=== PATIENT | female | born 1990 | race Caucasian/White ===

== ENCOUNTER 2019-02-16 16:20 | Emergency (ER) | payer OTHER, SELFPAY ==
--- NOTE | 2019-02-16 18:37 | ER ---
Nurse's Notes [facility] Name: Naima Shrestha Age: 28 yrs Sex: Female : 1990 Arrival Date: 02/16/2019 Time: 16:23 Bed 20 Private MD: Diagnosis: Urinary tract infection, site not specified Presentation: 02/16 16:33 Presenting complaint: Patient states: i started having low back pain where my kidneys tw2 are about 2 days ago, yesterday my fever got up to 103, denies urinary urgency frequency, now i feel nauseous and my stomach feels bloated and the lower part of my stomach is hurting me. Transition of care: patient was not received from another setting of care. Onset of symptoms was February 16, 2019. Risk Assessment: Do you want to hurt yourself or someone else? Patient reports no desire to harm self or others. Initial Sepsis Screen: Does the patient meet any 2 criteria? No. Patient's initial sepsis screen is negative. Does the patient have a suspected source of infection? No. Patient's initial sepsis screen is negative. Care prior to arrival: None. 16:33 Method Of Arrival: Ambulatory tw2 16:33 Acuity: OJNA 3 tw2 Triage Assessment: 16:37 General: Appears in no apparent distress. well groomed, Behavior is calm, cooperative, tw2 appropriate for age. General: pt reports fever spiked yesterday. Pain: Complains of pain in lumbar area, left low back and right low back. Musculoskeletal: Range of motion: intact in all extremities. 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 - Social history:: Smoking status: Patient/guardian denies using tobacco. - Ebola Screening: : Patient denies travel to an Ebola-affected area in the 21 days before illness onset. Screenin:04 Abuse screen: Denies threats or abuse. Nutritional screening: No deficits noted. tw2 Tuberculosis screening: No symptoms or risk factors identified. Fall Risk None identified. Assessment: 18:10 General: Appears in no apparent distress. comfortable, Behavior is calm, cooperative, em Reports fever for 2-3 days. Pain: Complains of pain in lumbar area Pain currently is 6 out of 10 on a pain scale. Neuro: Level of Consciousness is awake, alert, obeys commands, Oriented to person, place, time, situation. Cardiovascular: Capillary refill < 3 seconds Patient's skin is warm and dry. Respiratory: Airway is patent Respiratory effort is even, unlabored, Respiratory pattern is regular, symmetrical. GI: Abdomen is flat, Bowel sounds present X 4 quads. Patient currently denies nausea, vomiting. : Urine is cloudy, Reports burning with urination, Denies discharge. Derm: Skin is intact, is healthy with good turgor, Skin is pink, warm \T\ dry. Musculoskeletal: Capillary refill < 3 seconds, Range of motion: intact in all extremities. 18:17 Reassessment: I agree with previous assessment. hb Vital Signs: 16:35 BP 136 / 67; Pulse 99; Resp 17; Temp 99.3(O); Pulse Ox 98% on R/A; Weight 83.91 kg (R); tw2 Height 5 ft. 9 in. (175.26 cm) (R); Pain 6/10; 18:01 Temp 99.1(O); ms 16:35 Body Mass Index 27.32 (83.91 kg, 175.26 cm) tw2 ED Course: 16:23 Patient arrived in ED. mr 16:35 Triage completed. tw2 16:36 Arm band placed on. tw2 18:04 Bed in low position. Call light in reach. Pulse ox on. NIBP on. tw2 18:09 Gordon Barber LVN is Primary Nurse. em 18:14 Bib Mejía PA is PHCP. cp 18:14 Shon Willard MD is Attending Physician. cp 18:48 No provider procedures requiring assistance completed. Patient did not have IV access em during this emergency room visit. Administered Medications: No medications were administered Outcome: 18:36 Discharge ordered by . cp 18:48 Discharged to home ambulatory. em 18:48 Condition: good 18:48 Discharge instructions given to patient, Instructed on discharge instructions, follow up and referral plans. medication usage, Demonstrated understanding of instructions, follow-up care, medications, Prescriptions given X 3. 18:48 Patient left the ED. em Addendum: 02/18/2019 09:51 Addendum: Culture Results: Positive urine culture. No further action required. Bacteria i w sensitive to prescribed antibiotic. Signatures: Joselin Johnson mr Sunil, Gordon, B[employer]INGS SECURITIES TRADER [employer]ITIES TRADER em Ann-Marie Mooney, RN RN Ila Rodriguez ms Bib Mejía, PA Samia Pineda cp RN Shirley Bear RN RN tw2
--- NOTE | 2019-02-16 18:37 | EDPHYS ---
Physician Documentation [facility] Name: Naima Shrestha Age: 28 yrs Sex: Female : 1990 Arrival Date: 02/16/2019 Time: 16:23 Bed 20 Private MD: ED Physician Shon Willard HPI: 02/16 17:50 This 28 yrs old Female presents to ER via Ambulatory with complaints of Back cp Pain. 17:50 The patient presents with pain that is acute, with no known mechanism of injury. The cp symptoms are located in the low back. Onset: The symptoms/episode began/occurred 2 day(s) ago. Associated signs and symptoms: Pertinent positives: fever, nausea, lower abdomen pain, Pertinent negatives: constipation, dysuria, incontinence, weakness, diarrhea. Severity of symptoms: in the emergency department the symptoms are unchanged, despite home interventions. 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 - Social history:: Smoking status: Patient/guardian denies using tobacco. - Ebola Screening: : Patient denies travel to an Ebola-affected area in the 21 days before illness onset. ROS: 18:00 Constitutional: Negative for body aches, chills, fever, poor PO intake. cp 18:00 Eyes: Negative for injury, pain, redness, and discharge. cp 18:00 ENT: Negative for drainage from ear(s), ear pain, sore throat, difficulty swallowing, difficulty handling secretions. 18:00 Cardiovascular: Negative for chest pain, edema, palpitations. 18:00 Respiratory: Negative for cough, shortness of breath, wheezing. 18:00 Abdomen/GI: Positive for abdominal pain, nausea, Negative for vomiting, diarrhea, constipation, anorexia, black/tarry stool, rectal bleeding. 18:00 Back: Positive for pain at rest, pain with movement, of the low back area, Negative for injury or acute deformity, decreased range of motion. 18:00 : Negative for urinary symptoms, vaginal bleeding, vaginal discharge. 18:00 All other systems are negative. Exam: 18:05 Constitutional: The patient appears in no acute distress, alert, awake, comfortable, cp non-toxic, well developed, well nourished. 18:05 Head/Face: Normocephalic, atraumatic. cp 18:05 Eyes: Periorbital structures: appear normal, Conjunctiva: normal, no exudate, no injection, Lids and lashes: appear normal, bilaterally. 18:05 ENT: External ear(s): are unremarkable, Nose: is normal, Mouth: Lips: moist, Oral mucosa: moist, Posterior pharynx: is normal, airway is patent, no erythema, no exudate. 18:05 Chest/axilla: Inspection: normal. 18:05 Cardiovascular: Rate: normal. 18:05 Respiratory: the patient does not display signs of respiratory distress, Respirations: normal, no use of accessory muscles, no retractions, no splinting, no tachypnea. 18:05 Abdomen/GI: Inspection: abdomen appears normal, Bowel sounds: active, all quadrants, Palpation: abdomen is soft and non-tender, in all quadrants. 18:05 Back: pain, that is mild, of the low back area. 18:05 Neuro: Orientation: is normal, Mentation: is normal, Motor: moves all fours, strength is normal, Gait: is steady. Vital Signs: 16:35 BP 136 / 67; Pulse 99; Resp 17; Temp 99.3(O); Pulse Ox 98% on R/A; Weight 83.91 kg (R); tw2 Height 5 ft. 9 in. (175.26 cm) (R); Pain 6/10; 18:01 Temp 99.1(O); ms 16:35 Body Mass Index 27.32 (83.91 kg, 175.26 cm) tw2 MDM: 18:08 Patient medically screened. snw 18:35 Data reviewed: vital signs, nurses notes, lab test result(s), urinalysis, and as a cp result, I will discharge patient. 02/16 16:24 Order name: Urine Microscopic Only; Complete Time: 02:58 snw 02/16 18:41 Order name: Urine Dipstick--Ancillary (enter results); Complete Time: 02:58 eb 02/16 16:24 Order name: Urine Test (obtain specimen); Complete Time: 18:45 snw 02/16 16:24 Order name: Urine Dipstick-Ancillary (obtain specimen); Complete Time: 18:45 snw 02/16 18:41 Order name: Urine --Ancillary (enter results); Complete Time: 02:58 eb Administered Medications: No medications were administered Disposition: 02/16/19 18:36 Discharged to Home. Impression: Urinary tract infection, site not specified. - Condition is Stable. - Discharge Instructions: Urinary Tract Infection, Adult. - Prescriptions for Ibuprofen 800 mg Oral Tablet - take 1 tablet by ORAL route every 8 hours As needed take with food; 30 tablet. Zofran 4 mg Oral Tablet - take 1 tablet by ORAL route every 12 hours As needed; 10 tablet. Bactrim DS 800- 160 mg Oral Tablet - take 1 tablet by ORAL route every 12 hours for 7 days; 14 tablet. - Medication Reconciliation Form, Thank You Letter, Antibiotic Education, Prescription Opioid Use form. - Follow up: Private Physician; When: 2 - 3 days; Reason: Worsening of condition. - Problem is new. - Symptoms have improved. Addendum: 02/17/2019 19:33 Co-signature as Attending Physician, Shon Willard MD I agree with the assessment and k dr plan of care. Signatures: Dispatcher [employer] EDVA Shon Willard MD MD [facility] Lisa Knowles, MINISTER ASSISTANT-C MINISTER ASSISTANT-Csnw Gordon Barber, CLAY HOUSE WORKER CLAY HOUSE WORKER em Bib Mejía PA PA cp Shirley Patel, RN RN tw2 Corrections: (The following items were deleted from the chart) 02/16 18:48 18:36 02/16/2019 18:36 Discharged to Home. Impression: Urinary tract infection, site em not specified. Condition is Stable. Forms are Medication Reconciliation Form, Thank You Letter, Antibiotic Education, Prescription Opioid Use. Follow up: Private Physician; When: 2 - 3 days; Reason: Worsening of condition. Problem is new. Symptoms have improved. cp
[2019-02-16 19:04] LABS: Urine Blood 1+ (NEG); Urine Glucose NEGATIVE (NEG); Urine Protein 2+ (NEG)
[2019-02-16 19:38] LABS: Urine Culture Reflex Order REFLEXED
[2019-02-16 19:39] LABS: Urine Bacteria 20-50 /HPF (<20); Urine RBC <5 /HPF (NONE SEEN)
== END 2019-02-16 18:48 | disposition home or self-care (01) ==
LOC: ER 16:20
DX: N39.0 Urinary tract infection, site not specified (principal)
CPT/HCPCS: 81003; 81015; 81025; 87077; 87086; 87088; 87186; 99283

== ENCOUNTER 2019-06-12 13:50 | Emergency (ER) | payer OTHER, SELFPAY ==
[2019-06-12 16:14] LABS: Absolute Lymphocytes (CBC) 1.7 K/uL (0.7-4.9); Basophils % 0.3 % (0-1.3); Hematocrit 40.5 % (36.0-45.0); Lymphocytes % 15.3 % (15.3-44.8); MPV 8.6 fL (7.6-11.3); RBC Red Blood Cell Count 4.51 M/uL (3.86-4.86)
[2019-06-12 16:27] LABS: Urine Blood 1+ (NEG); Urine Glucose NEGATIVE (NEG); Urine Protein 1+ (NEG); Urine Specific Gravity 1.025 (1.005-1.030); Urine pH 6.5 (5.0-7.0)
[2019-06-12 16:31] LABS: ALT/SGPT 18 U/L (12-78); AST/SGOT 13 U/L (15-37); Albumin 3.9 g/dL (3.4-5.0); Alkaline Phosphatase 45 U/L (45-117); BUN Blood Urea Nitrogen 10 mg/dL (7-18); Bicarbonate 29 mmol/L (21-32); Bilirubin Total 0.2 mg/dL (0.2-1.0); Glucose Level 82 mg/dL (74-106); Protein, Total 7.3 g/dL (6.4-8.2); Sodium Level 138 mmol/L (136-145)
--- NOTE | 2019-06-12 16:41 | ER ---
Nurse's Notes [facility] Name: Naima Phoenicia Age: 28 yrs Sex: Female : 1990 Arrival Date: 06/12/2019 Time: 13:54 Bed 19 Private MD: Diagnosis: Acute cystitis in Presentation: 06/12 14:05 Presenting complaint: Patient states: Right flank pain that radiates to lower abdomen x hb 2 days. Denies fever/urinary s/s. CAROL 12/26/19. Transition of care: patient was not received from another setting of care. Onset of symptoms was June 11, 2019. Risk Assessment: Do you want to hurt yourself or someone else? Patient reports no desire to harm self or others. Initial Sepsis Screen: Does the patient meet any 2 criteria? No. Patient's initial sepsis screen is negative. Does the patient have a suspected source of infection? No. Patient's initial sepsis screen is negative. Care prior to arrival: None. 14:05 Method Of Arrival: Ambulatory hb 14:05 Acuity: JONA 3 hb Historical: - Allergies: 14:07 No Known Allergies; hb - Home Meds: 14:07 Vitamin Oral tab 1 tab once daily [Active]; hb - PMHx: 14:07 None; hb - PSHx: 14:07 Appendectomy; hb - Immunization history:: Adult Immunizations up to date. - Social history:: Smoking status: Patient/guardian denies using tobacco. - Ebola Screening: : No symptoms or risks identified at this time. Screenin:02 Abuse screen: Denies threats or abuse. Denies injuries from another. Nutritional mg2 screening: No deficits noted. Tuberculosis screening: No symptoms or risk factors identified. Fall Risk IV access (20 points). Vital Signs: 14:07 BP 124 / 55; Pulse 89; Resp 16; Temp 98.3; Pulse Ox 100% on R/A; Weight 86.18 kg; hb Height 5 ft. 9 in. (175.26 cm); Pain 7/10; 14:07 Body Mass Index 28.06 (86.18 kg, 175.26 cm) hb ED Course: 13:54 Patient arrived in ED. mr 14:06 Triage completed. hb 14:07 Arm band placed on. hb 15:39 Zan Cook MD is Attending Physician. ps1 15:39 Dakota Guillory, RN is Primary Nurse. mg2 15:45 Urine collected: clean catch specimen, cloudy, jessica colored. jb1 16:01 Inserted saline lock: 20 gauge in right antecubital area, using aseptic technique. mg2 Blood collected. 16:41 US Rp Exam Complete In Process Unspecified. EDMS 16:46 No provider procedures requiring assistance completed. IV discontinued, intact, ss bleeding controlled, No redness/swelling at site. Pressure dressing applied. Administered Medications: No medications were administered Outcome: 16:40 Discharge ordered by . ps1 16:46 Discharged to home ambulatory. ss 16:46 Condition: good 16:46 Discharge instructions given to patient, Instructed on discharge instructions, follow up and referral plans. medication usage, Demonstrated understanding of instructions, follow-up care, medications, Prescriptions given X 1. 16:46 Patient left the ED. ss Signatures: Dispatcher [employer] EDMS [place] jb1 Joselin Johnson mr Kenzie Farr RN RN Samia Campos RN RN Zan Cook MD MD ps1 Dakota Guillory, RN RN mg2 Corrections: (The following items were deleted from the chart) 14:08 14:05 Presenting complaint: Patient states: Right flank pain that radiates to lower hb abdomen x 2 days. Denies fever/urinary s/s hb
--- NOTE | 2019-06-12 16:42 | EDPHYS ---
Physician Documentation [facility] Name: Naima Shrestha Age: 28 yrs Sex: Female : 1990 Arrival Date: 06/12/2019 Time: 13:54 Bed 19 Private MD: ED Physician Zan Cook HPI: 06/12 15:52 This 28 yrs old Female presents to ER via Ambulatory with complaints of 12 ps1 wks , Back Pain, Abdominal Pain. 15:52 at 12 weeks for right flank pain. Rated as moderate, dull into groin. No urinary ps1 complaints. No fever. No history of stones. Had US + IUP 3 weeks ago. No VB, CTX. Previous pregnancies no complications at term. No GTN, GDM. . Historical: - Allergies: 14:07 No Known Allergies; hb - Home Meds: 14:07 Vitamin Oral tab 1 tab once daily [Active]; hb - PMHx: 14:07 None; hb - PSHx: 14:07 Appendectomy; hb - Immunization history:: Adult Immunizations up to date. - Social history:: Smoking status: Patient/guardian denies using tobacco. - Ebola Screening: : No symptoms or risks identified at this time. ROS: 15:52 Constitutional: Negative for fever, chills, and weight loss, Eyes: Negative for injury, ps1 pain, redness, and discharge, Cardiovascular: Negative for chest pain, palpitations, and edema, Respiratory: Negative for shortness of breath, cough, wheezing, and pleuritic chest pain, Abdomen/GI: Negative for abdominal pain, nausea, vomiting, diarrhea, and constipation, MS/Extremity: Negative for injury and deformity, Skin: Negative for injury, rash, and discoloration, Neuro: Negative for headache, weakness, numbness, tingling, and seizure. 15:52 : Positive for flank pain. Exam: 15:56 Constitutional: This is a well developed, well nourished patient who is awake, alert, ps1 and in no acute distress. Head/Face: Normocephalic, atraumatic. Eyes: Pupils equal round and reactive to light, extra-ocular motions intact. Lids and lashes normal. Conjunctiva and sclera are non-icteric and not injected. Cardiovascular: Regular rate and rhythm. No gallops, murmurs, or rubs. Normal PMI, no JVD. No pulse deficits. Respiratory: Lungs have equal breath sounds bilaterally, clear to auscultation and percussion. No rales, rhonchi or wheezes noted. No increased work of breathing, no retractions or nasal flaring. Abdomen/GI: Soft, non-tender, with normal bowel sounds. No distension or tympany. No guarding or rebound. No evidence of tenderness throughout. Skin: Warm, dry with normal turgor. Normal color with no rashes, no lesions, and no evidence of cellulitis. MS/ Extremity: Pulses equal, no cyanosis. Neurovascular intact. Full, normal range of motion. Neuro: Awake and alert, GCS 15, oriented to person, place, time, and situation. Cranial nerves II-XII grossly intact. Sensory grossly intact. Vital Signs: 14:07 BP 124 / 55; Pulse 89; Resp 16; Temp 98.3; Pulse Ox 100% on R/A; Weight 86.18 kg; hb Height 5 ft. 9 in. (175.26 cm); Pain 7/10; 14:07 Body Mass Index 28.06 (86.18 kg, 175.26 cm) hb MDM: 15:46 Patient medically screened. ps1 16:41 Data reviewed: vital signs, nurses notes, and as a result, I will discharge patient. ps1 Counseling: I had a detailed discussion with the patient and/or guardian regarding: the historical points, exam findings, and any diagnostic results supporting the discharge/admit diagnosis, lab results, radiology results, the need for outpatient follow up. ED course: patient is wanting to leave. Normal renal US. Urine +LE and blood. Micro sent but not resulted. Will treat with macrobid. No fever. Patient to follow up with OB for culture and confirmation of resolution. . 06/12 15:32 Order name: Urine Dipstick--Ancillary (enter results); Complete Time: 16:43 em1 06/12 15:32 Order name: Urine --Ancillary (enter results); Complete Time: 16:43 em1 06/12 15:46 Order name: CBC with Diff; Complete Time: 16:43 ps1 06/12 15:46 Order name: CMP ps1 06/12 15:46 Order name: US Rp Exam Complete ps1 06/12 16:34 Order name: Urine Microscopic Only em1 Administered Medications: No medications were administered Disposition: 06/12/19 16:40 Discharged to Home. Impression: Acute cystitis in . - Condition is Stable. - Discharge Instructions: and Urinary Tract Infection. - Prescriptions for Macrobid 100 mg Oral Capsule - take 1 capsule by ORAL route every 12 hours for 10 days; 20 capsule. - Medication Reconciliation Form, Thank You Letter, Antibiotic Education, Prescription Opioid Use form. - Follow up: Private Physician; When: 48 Hours; Reason: Recheck today's complaints, Continuance of care, Re-evaluation by your physician. Follow up: Emergency Department; When: As needed; Reason: Fever > 102 F, Worsening of condition. - Problem is new. - Symptoms are unchanged. Signatures: Dispatcher [employer] EDMS Kenzie Farr RN RN ss Samia Campos RN RN Zan Cook MD MD ps1 Corrections: (The following items were deleted from the chart) 16:46 16:40 06/12/2019 16:40 Discharged to Home. Impression: Acute cystitis in . ss Condition is Stable. Forms are Medication Reconciliation Form, Thank You Letter, Antibiotic Education, Prescription Opioid Use. Follow up: Private Physician; When: 48 Hours; Reason: Recheck today's complaints, Continuance of care, Re-evaluation by your physician. Follow up: Emergency Department; When: As needed; Reason: Fever > 102 F, Worsening of condition. Problem is new. Symptoms are unchanged. ps1
--- NOTE | 2019-06-12 16:51 | RAD REPORT ---
EXAM DESCRIPTION: US - Renal Ultrasound-Complete - 06/12/2019 4:24 pm CLINICAL HISTORY: Right-sided flank pain COMPARISON: CT study March 2017 FINDINGS: The right kidney measures 12.4 x 3.8 x 4.4 cm. The left kidney measures 12.5 x 4.7 x 3.9 cm. Renal cortical thickness and echogenicity are normal. No hydronephrosis or suspicious renal mass. Bladder was too contracted to allow adequate assessment. IMPRESSION: No hydronephrosis or suspicious renal mass. No other significant findings.
[2019-06-12 17:39] LABS: Urine Bacteria 20-50 /HPF (<20); Urine Culture Reflex Order REFLEXED
== END 2019-06-12 16:46 | disposition home or self-care (01) ==
LOC: ER 13:50
DX: O23.11 Infections of bladder in pregnancy, first trimester (principal); N30.90 Cystitis, unspecified without hematuria
CPT/HCPCS: 36415; 76770; 80053; 81003; 81015; 81025; 85025; 87077; 87086; 87088; 87186; 99284